=== PATIENT | male | born 1955 | race Two or more races ===

== ENCOUNTER → 2018-08-03 | Outpatient (CLI) | payer OTHER ==
--- NOTE | 2018-08-03 19:02 | CONS ---
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 However in his history he states that pain is not his major issue the legs just feel heavy and sometimes weak. At this time I am not suspicious of of significant lumbar spine pathology. On examination he had no tenderness to palpation. Did have decreased range of motion. At this time I would like to continue conservative treatment and if this is exhausted can re-discuss surgery. Plan: Physical therapy follow-up in 12 weeks. Consultation Date/Type/Reason Admit Date/Time Date of Consultation: August 03, 2018 Reason for Consultation Bilateral knee pain and osteoarthritis Date/Time of Note DATE: 08/03/18 TIME: 18:51 Hx of Present Illness This is a 7-year-old male with a chief complaint of right and left knee pain. The symptoms are equal in the right and left knee. The pain began approximately 14 years ago. [id number] right arthroscopic knee surgery which helped. The patient is not able to tell me where his pain over the knees are. States they are currently not hurting. 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 Pain is not radiating to the lower leg. The pain is rated as a 8/10. Patient denies complaints of numbness or tingling. The pain is exacerbated by climbing stairs and ambulation. Pain is not relieved by NSAID's. ----- Duration: Since 2005 Injury: No Walking tolerance: Limited to 2 blocks Limp: Yes Support: No Swelling: No Crepitation: Yes Instability: No Stairs: One step at times and uses banister Physical Therapy: No Injections: Yes. Patient has had steroid injection as well as PRP. States this did not help. The injections were over a year ago. NSAID's: Yes Prior surgery: Right arthroscopic knee surgery Back pain: No Hip pain: No Risk of AVN : No Patient denies fever, chills, shortness of breath, chest pain, nausea/vomiting, constipation, diarrhea, numbness, and tingling. Past Medical History Hypertension Past Surgical History Right knee arthroscopic knee surgery Family History Significant Family History: no pertinent family hx Social History Drug Use: none Exam/Review of Systems Exam Vitals weight: 185 pounds Height: 5 foot 6 inches Heart Rate: 57 Blood Pressure: 169/87 Exam General: Awake, alert, in no acute distress, pleasant and cooperative Heart: regular rhythm Lungs: breathing comfortably, no tachypnea or dyspnea MUSCULOSKELETAL: Right and Left Knee This is a well developed male who is alert, oriented times three and in no apparent distress. Skin is intact over the right and left knee as well as the lower extremity with no abrasions, lacerations, or ulcerations. Observation of the patient's gait reveals an antalgic gait with varus thrust. Frontal plane alignment is varus worse on the left than on the right knee. There is no pain to palpation along the entire knee. There is no joint effusion. Significant bilateral quadricep atrophy. The patient demonstrates grinding anteriorly with ROM. Range of motion: 15 extension to approximately 115 degrees of flexion on the right and 201 20 on the left. Collateral ligament testing reveals no instability with varus or valgus stress at 0 and 30 degrees of flexion. Negative Jamil's and negative posterior drawer. Neurovascularly intact with 5/5 EHL/tibialis anterior/gastroc. Sensation intact to light touch in a sural, saphenous, deep peroneal, superficial peroneal, medial and lateral plantar nerve distribution. Palpable, symmetric dorsalis pedis and posterior tibial pulses in both lower extremities. Hip examination normal Imaging Imaging The patient received a standard set of films today that were personally reviewed. Imaging included a standing bilateral knee AP, PA flexion, merchant views and a dedicated lateral of the affected knee: There is varus alignment of the knee. There is severe loss of joint space medial compartment(s) and moderate loss in the lateral and patellofemoral compartment. The articular surfaces are irregular and appear to have erosions. There is osteophyte formation. There is subchondral sclerosis. There are subchondral cysts. Degenerative changes are most severe in the medial compartment(s) ROYAL MENCHCAA MD August 03, 2018 19:02
--- NOTE | 2018-08-04 09:06 | RADRPT ---
PROCEDURE: XR bilateral Knees. CLINICAL INDICATION: Bilateral knee pain. TECHNIQUE: 4 views of both knees are available for review. COMPARISON: None available FINDINGS: Right side: There is marked medial joint space narrowing and small osteophytes with milder lateral neo int space narrowing and osteophytes. Moderate patellofemoral arthrosis changes consist of asymmetrica l joint space narrowing and osteophyte formation. There is a moderate joint effusion. No evidence for acute fracture. No radiopaque foreign body is seen. Left side: There is marked medial joint space narrowing and small osteophytes with milder lateral gay nt space narrowing and osteophytes. Moderate patellofemoral arthrosis changes consist of asymmetrical joint space narrowing and osteophyte formation. There is a moderate joint effusion. No evidence for acute fracture. No radiopaque foreign body is seen. IMPRESSION: 1. Severe bilateral medial compartment and moderate lateral and patellofemoral compartment arthrosis . 2. No evidence for fracture. 3. No erosive changes are seen. RPTAT: XX .Joni Mason MD, MD Date Time Electronically viewed and signed by .Joni Mason MD, on 08/04/2018 09:06 .T/
== END | disposition home or self-care (01) ==
LOC: HKI 11:25
PROVIDERS: ATTEND Orthopaedic Surgery Adult Reconstructive Orthopaedic Surgery
DX: M17.0 Bilateral primary osteoarthritis of knee (principal); I10 Essential (primary) hypertension
CPT/HCPCS: 73564; Z7500; G0463